=== PATIENT | female | born 1980 | race Caucasian/White ===

== ENCOUNTER 2018-06-11 09:27 | Emergency (ER) | payer OTHER ==
--- NOTE | 2018-06-11 10:18 | UC ---
Abdominal Pain Female HPI - HPI Summary HPI Summary: 38 yo female presents with intermittent nausea over the last 3 months. She tells me that she was in [place] in March 2018 with a friend and while there she was eating at a lot of different places and new foods. Her and her friend have both had intermittent abdominal pain and nausea since that time. Her nausea will happen about once a week or every other week and last for 2 or 3 days before resolving. During this time she has a lot of belching and her stomach feels uneasy. She also admits to some loose stools. Her mother had h pylori once and told pt that her symptoms sound the same. She also mentions that she is very busy with work and under a lot of stress. Does not have a PCP. She denies fever, chills, SOB, chest pain, vomiting, dysuria. - History of Current Complaint Chief Complaint: UCAbdominalPain Stated Complaint: NAUSEA Time Seen by Provider: 06/11/18 10:17 Hx Obtained From: Patient Hx Last Menstrual Period: 06/01/18 Onset/Duration: Gradual Onset Severity Initially: Mild Severity Currently: Mild Pain Intensity: 4 Pain Scale Used: 0-10 Numeric Allergies/Adverse Reactions: Allergies Allergy/AdvReac Type Severity Reaction Status Date / Time steroids Allergy manic Uncoded 06/11/18 09:44 Home Medications: Home Medications Ziprasidone CAP* [Geodon CAP*] 1 tab PO DAILY 06/11/18 [History Confirmed ] traZODone TAB* [Desyrel TAB*] 100 mg PO DAILY 06/11/18 [History Confirmed ] PMH/Surg Hx/FS Hx/Imm Hx Neurological History: Migraine Psychological History: Anxiety, Depression - Surgical History Surgical History: Yes Surgery Procedure, Year, and Place: ricki,hernia - Family History Known Family History: Positive: None - Social History Occupation: Employed Full-time Lives: With Family Alcohol Use: None Substance Use Type: None Smoking Status (MU): Never Smoked Tobacco Review of Systems All Other Systems Reviewed And Are Negative: Yes Constitutional: Positive: Negative Skin: Positive: Negative Respiratory: Positive: Negative Cardiovascular: Positive: Negative Gastrointestinal: Positive: Abdominal Pain, Nausea Genitourinary: Positive: Negative Neurovascular: Positive: Negative Musculoskeletal: Positive: Negative Neurological: Positive: Negative Psychological: Positive: Negative Physical Exam - Summary Physical Exam Summary: GENERAL: NAD. WDWN. No pain distress. SKIN: No rashes, sores, lesions, or open wounds. NECK: Supple. Nontender. No lymphadenopathy. CHEST: CTAB. No r/r/w. No accessory muscle use. Breathing comfortably and in no distress. CV: RRR. Without m/r/g. Pulses intact. Cap refill <2seconds ABDOMEN: Mild RLQ pain. Soft. No distention or guarding. No organomegaly. No CVA tenderness. Bowel sounds present NEURO: Alert. PSYCH: Age appropriate behavior. Triage Information Reviewed: Yes Vital Signs: Initial Vital Signs Temp 98.4 F 06/11/18 09:40 Pulse 69 06/11/18 09:40 Resp 16 06/11/18 09:40 BP 103/70 06/11/18 09:40 Pulse Ox 100 06/11/18 09:40 Laboratory Tests 06/11/18 10:39 POC Urine Color Ayana POC Urine Clarity Cloudy POC Urine pH 6.0 POC Ur Specif [place] >= 1.030 POC Urine Protein Trace A POC Ur Glucose (UA) Negative POC Urine Ketones Negative POC Urine Blood Trace-lysed A POC Urine Nitrite Negative POC Urine Bilirubin Negative POC Urine Urobilinogen 0.2 POC U Leukocyte Esteras Trace A Vital Signs Reviewed: Yes Abd Pain Female Course/Dx - Course Course Of Treatment: CT: IMPRESSION: RIGHT NEPHROLITHIASIS, INCLUDING A QUESTIONABLE CALCULUS OF THE DISTAL RIGHT URETER. THERE. IS NO APPRECIABLE HYDRONEPHROSIS. UA with trace leuks, but she is having no urinary symptoms - therefore will send for culture and treat as needed. I do suspect she may be suffering from h pylori. She is requesting treatment for this today as she says she does not have time nor want to wait to get into a GI doctor for testing. I will treat her for h pylori and strongly advised her to f/u with GI. If her symptoms worsen to go to the ED. - Differential Dx/Diagnosis Provider Diagnosis: Nausea, Abdominal pain Discharge - Sign-Out/Discharge Documenting (check all that apply): Patient Departure All imaging exams completed and their final reports reviewed: Yes - Discharge Plan Condition: Stable Disposition: HOME Prescriptions: Amoxicillin PO (*) [Amoxicillin 500 MG CAP*] 1 gm PO Q12H #56 cap Clarithromycin TAB* [Biaxin 500 MG TAB*] 500 mg PO BID #28 tab Pantoprazole TAB (NF) [Protonix TAB (NF)] 20 mg PO BID #28 tab Patient Education Materials: Helicobacter Pylori (ED) Referrals: No Primary Care Phys,NOPCP [Primary Care Provider] - Moose Amin MD [Medical Doctor] - As Soon As Possible Additional Instructions: If you develop a fever, shortness of breath, chest pain, new or worsening symptoms - please call your PCP or go to the ED. You are being treated for H. Pylori. Please schedule an appointment with a GI doctor for follow up as soon as possible. - Billing Disposition and Condition Condition: STABLE Disposition: Home
[2018-06-11 12:32] VITALS: BP 114/75
== END 2018-06-11 12:20 | disposition home or self-care (01) ==
LOC: UCEAST 09:27
DX: R11.0 Nausea (principal); R10.31 Right lower quadrant pain; N20.0 Calculus of kidney; F32.9 Major depressive disorder, single episode, unspecified; Z88.8 Allergy status to other drugs, medicaments and biological substances
CPT/HCPCS: 74176; 81003; 84702; 87086; 99202; G0463

== ENCOUNTER 2018-08-13 11:08 | Emergency (ER) | payer OTHER ==
[2018-08-13 11:52] VITALS: BP 110/65
--- NOTE | 2018-08-13 12:12 | UC ---
UC General HPI - HPI Summary HPI Summary: States two days of urinary frequency. No dysuria. No hematuria. Also noticed right sided back pain. No fever. No N/V. Has an IUD. Has a new partner that both were tested for STIs she saw his results that are negative. SHe has been having more sex lately. Hx of kidney stones in the past. Meds: reviewed. NO vaginal discharge or itching - History of Current Complaint Chief Complaint: UCGU Stated Complaint: URINARY COMPLAINT Time Seen by Provider: 08/13/18 11:49 Hx Last Menstrual Period: iud Pain Intensity: 2 - Allergy/Home Medications Allergies/Adverse Reactions: Allergies Allergy/AdvReac Type Severity Reaction Status Date / Time steroids Allergy manic Uncoded 08/13/18 11:52 Home Medications: Home Medications clonazePAM TAB(*) [KlonoPIN TAB(*)] 1 mg PO BEDTIME 08/13/18 [History Confirmed 08/13/18] PMH/Surg Hx/FS Hx/Imm Hx Previously Healthy: Yes - Surgical History Surgical History: Yes Surgery Procedure, Year, and Place: ricki,hernia - Family History Known Family History: Positive: None - Social History Alcohol Use: None Substance Use Type: None Smoking Status (MU): Never Smoked Tobacco Review of Systems All Other Systems Reviewed And Are Negative: Yes Genitourinary: Positive: Frequency, Urgency Physical Exam Triage Information Reviewed: Yes Appearance: Well-Appearing Vital Signs: Initial Vital Signs Temp 98.1 F 08/13/18 11:48 Pulse 80 08/13/18 11:48 Resp 18 08/13/18 11:48 BP 110/65 08/13/18 11:48 Pulse Ox 97 08/13/18 11:48 ENT: Positive: Normal ENT inspection Respiratory: Positive: Lungs clear, Normal breath sounds Cardiovascular: Positive: RRR, No Murmur Abdomen Description: Positive: Soft, CVA Tenderness (R), Other: Diagnostics - Radiology Renal US and bladder Radiology Interpretation Completed By: Radiologist Summary of Radiographic Findings: No hydronephrosis, no nephrolithiasis, PVR: 21 Course/Dx - Course Course Of Treatment: This is a 38 yr old with urinary frequency and right low back pain Assessment U/A: negative Renal US&Bladder: Negative Suspect its from having sex several times over past 1-2 days Plan REcommend pelvic rest If symptoms continue: Recommend trial of Oxybutynin Recommend evaluation by a urologist - DR. Garnica - Diagnoses Provider Diagnosis: Urinary frequency Discharge - Sign-Out/Discharge Documenting (check all that apply): Patient Departure All imaging exams completed and their final reports reviewed: Yes - Discharge Plan Condition: Good Disposition: HOME Prescriptions: Oxybutynin XL TAB* [Ditropan XL TAB*] 5 mg PO DAILY #30 tab.xl Referrals: No Primary Care Phys,NOPCP [Primary Care Provider] - Marquise Garnica MD [Medical Doctor] - Additional Instructions: REcommend pelvic rest If symptoms continue: Recommend trial of Oxybutynin Recommend evaluation by a urologist - DR. Garnica - Billing Disposition and Condition Condition: GOOD Disposition: Home
== END 2018-08-13 14:01 | disposition home or self-care (01) ==
LOC: UCEAST 11:08
DX: R35.0 Frequency of micturition (principal); M54.5 Low back pain; Z88.8 Allergy status to other drugs, medicaments and biological substances
CPT/HCPCS: 76770; 81003; 99212; G0463

== ENCOUNTER 2018-09-01 18:34 | Emergency (ER) | payer OTHER ==
[2018-09-01 18:42] VITALS: BP 129/81
[2018-09-01] MEDS ORDERED: Ibuprofen TAB* 600 MG PO ONE (18:49)
[2018-09-01] MEDS ORDERED: Amoxicillin PO (*) 500 MG CAP PO ONE (19:12)
--- NOTE | 2018-09-01 19:24 | UC ---
Throat Pain/Nasal [place] HPI - HPI Summary HPI Summary: 2 DAYS OF SORE THROAT, PAIN WITH SWALLOWING AND SWOLLEN GLANDS. FEVER 102 TODAY. NO NAUSEA/VOMITING. REPORTS ABDOMINAL PAIN BUT STATES THIS IS CHRONIC. DENIES ANY URINARY SYMPTOMS. 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 STATES IT WAS RECOMMENDED SHE HAVE HER TONSILS REMOVED WHEN SHE WAS LIVING IN [place] BUT THAT BECAUSE OF INSURANCE ISSUES SHE WAS UNABLE TO HAVE THE PROCEDURE. - History of Current Complaint Chief Complaint: UCRespiratory Stated Complaint: SORE THROAT Time Seen by Provider: 09/01/18 18:46 Hx Obtained From: Patient Hx Last Menstrual Period: ~2 WEEKS AGO Onset/Duration: Gradual Onset, Lasting Days, Still Present Severity: Moderate Pain Intensity: 2 Pain Scale Used: 0-10 Numeric Cough: None Associated Signs & Symptoms: Positive: Fever - Allergies/Home Medications Allergies/Adverse Reactions: Allergies Allergy/AdvReac Type Severity Reaction Status Date / Time steroids Allergy manic Uncoded 09/01/18 18:42 Home Medications: Home Medications Ibuprofen TAB* [Advil TAB*] 600 mg PO ONCE PRN 09/01/18 [History Confirmed 09/01] PMH/Surg Hx/FS Hx/Imm Hx Other Psychological History: SCHIZOAFFECTIVE DISORDER - Surgical History Surgical History: Yes Surgery Procedure, Year, and Place: ricki,hernia - Family History Known Family History: Positive: None - Social History Alcohol Use: None Substance Use Type: None Smoking Status (MU): Never Smoked Tobacco Review of Systems All Other Systems Reviewed And Are Negative: Yes Constitutional: Positive: Fever, Fatigue ENT: Positive: Sore Throat Respiratory: Positive: Negative Cardiovascular: Positive: Negative Gastrointestinal: Positive: Abdominal Pain Genitourinary: Positive: Negative Physical Exam Triage Information Reviewed: Yes Appearance: Well-Appearing, No Pain Distress, Well-Nourished Vital Signs: Initial Vital Signs Temp 102.1 F 09/01/18 18:38 Pulse 132 09/01/18 18:38 Resp 16 09/01/18 18:38 BP 129/81 09/01/18 18:38 Pulse Ox 97 09/01/18 18:38 Laboratory Tests 09/01/18 18:51 Group A Strep Rapid Negative Vital Signs Reviewed: Yes Eyes: Positive: Conjunctiva Clear ENT: Positive: Hearing grossly normal, Pharyngeal erythema, TMs normal, Tonsillar swelling, Tonsillar exudate. Negative: Muffled voice Neck: Positive: Supple, Tenderness @ - SPFL CERVICAL LAD, Enlarged Nodes @ - SPFL CERVICAL LAD Respiratory Exam: Normal Cardiovascular: Positive: Tachycardia Abdomen Description: Positive: Soft, Other: - MILDLY TENDER DIFFUSELY. NO REBOUND OR RIGIDITY. 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 IS INSISTENT THAT SHE REQUIRES ANTIBIOTIC TREATMENT TODAY. WILL GO AHEAD AND COVER WITH AMOXICILLIN TWICE DAILY FOR 10 DAYS. THROAT CULTURE SENT. STRONGLY ENCOURAGED PATIENT TO FOLLOW UP WITH ENT FOR FURTHER EVALUATION OF HER RECURRENT TONSILLITIS. OTC MEDS NEEDED FOR DISCOMFORT AND FEVER. MAGIC MOUTHWASH ALSO PROVIDED FOR HER TO USE NEEDED. - Differential Dx/Diagnosis Provider Diagnosis: Acute tonsillitis Discharge - Sign-Out/Discharge Documenting (check all that apply): Patient Departure All imaging exams completed and their final reports reviewed: No Studies - Discharge Plan Condition: Stable Disposition: HOME Prescriptions: Amoxicillin PO (*) [Amoxicillin 500 MG CAP*] 500 mg PO Q12H #18 cap Magic Mouth Was-YIN/MAAL/LIDO* 5 - 10 ml SWISH SWAL QID PRN #150 ml PRN Reason: Sore Throat Patient Education Materials: Tonsillitis (ED) Referrals: [facility] [Outside] - If Needed Additional Instructions: RAPID STREP NEGATIVE. THROAT CULTURE SENT TO CONFIRM. WE WILL CALL YOU IF POSITIVE. GIVEN YOUR HISTORY OF RECURRENT STREP WILL GO AHEAD AND TREAT WITH ANTIBIOTICS. TAKE FOR THE FULL 10 DAYS. OTC CHLORASEPTIC OR CEPACOL LOZENGES AND/OR IBUPROFEN FOR SORE THROAT NEEDED MAGIC MOUTHWASH ALSO PROVIDED TO USE NEEDED. ONCE SYMPTOMS RESOLVED - NEW TOOTHBRUSH DO NOT SHARE FOOD, DRINK, UTENSILS CONSIDER EVALUATION BY ENT. [facility] IN [place] [address] [facility] [phone] CALL THE NUMBER BELOW FOR ASSISTANCE IN ESTABLISHING WITH A PCP An additional resource available to assist in finding the appropriate physician for your health care needs is the [facility] (Terrie Stevens). You may contact them by calling [phone]. - Billing Disposition and Condition Condition: STABLE Disposition: Home
--- NOTE | 2018-09-03 15:50 | UC ---
- Progress Note Progress Note: please notify pt she has Grp C strep throat continue amox Course/Dx - Diagnoses Provider Diagnoses: Acute tonsillitis Discharge - Sign-Out/Discharge Documenting (check all that apply): Patient Departure, Post-Discharge Follow Up All imaging exams completed and their final reports reviewed: No Studies - Discharge Plan Condition: Stable Disposition: HOME Prescriptions: Amoxicillin PO (*) [Amoxicillin 500 MG CAP*] 500 mg PO Q12H #18 cap Magic Mouth Was-YIN/MAAL/LIDO* 5 - 10 ml SWISH SWAL QID PRN #150 ml PRN Reason: Sore Throat Patient Education Materials: Tonsillitis (ED) Referrals: [facility] [Outside] - If Needed Additional Instructions: RAPID STREP NEGATIVE. THROAT CULTURE SENT TO CONFIRM. WE WILL CALL YOU IF POSITIVE. GIVEN YOUR HISTORY OF RECURRENT STREP WILL GO AHEAD AND TREAT WITH ANTIBIOTICS. TAKE FOR THE FULL 10 DAYS. OTC CHLORASEPTIC OR CEPACOL LOZENGES AND/OR IBUPROFEN FOR SORE THROAT NEEDED MAGIC MOUTHWASH ALSO PROVIDED TO USE NEEDED. ONCE SYMPTOMS RESOLVED - NEW TOOTHBRUSH DO NOT SHARE FOOD, DRINK, UTENSILS CONSIDER EVALUATION BY ENT. [facility] IN [place] [address] [facility] [phone] CALL THE NUMBER BELOW FOR ASSISTANCE IN ESTABLISHING WITH A PCP An additional resource available to assist in finding the appropriate physician for your health care needs is the [facility] (Terrie Stevens). You may contact them by calling [phone]. - Billing Disposition and Condition Condition: STABLE Disposition: Home
--- NOTE | 2018-09-04 16:00 | UC ---
- Progress Note Progress Note: as per yesterdays note no change in treatment...continue amox please notify pt of results (Group C strep) Course/Dx - Diagnoses Provider Diagnoses: Acute tonsillitis Discharge - Sign-Out/Discharge Documenting (check all that apply): Post-Discharge Follow Up All imaging exams completed and their final reports reviewed: No Studies - Discharge Plan Condition: Stable Disposition: HOME Prescriptions: Amoxicillin PO (*) [Amoxicillin 500 MG CAP*] 500 mg PO Q12H #18 cap Magic Mouth Was-YIN/MAAL/LIDO* 5 - 10 ml SWISH SWAL QID PRN #150 ml PRN Reason: Sore Throat Patient Education Materials: Tonsillitis (ED) Referrals: [facility] [Outside] - If Needed Additional Instructions: RAPID STREP NEGATIVE. THROAT CULTURE SENT TO CONFIRM. WE WILL CALL YOU IF POSITIVE. GIVEN YOUR HISTORY OF RECURRENT STREP WILL GO AHEAD AND TREAT WITH ANTIBIOTICS. TAKE FOR THE FULL 10 DAYS. OTC CHLORASEPTIC OR CEPACOL LOZENGES AND/OR IBUPROFEN FOR SORE THROAT NEEDED MAGIC MOUTHWASH ALSO PROVIDED TO USE NEEDED. ONCE SYMPTOMS RESOLVED - NEW TOOTHBRUSH DO NOT SHARE FOOD, DRINK, UTENSILS CONSIDER EVALUATION BY ENT. [facility] IN [place] [address] [phone] CALL THE NUMBER BELOW FOR ASSISTANCE IN ESTABLISHING WITH A PCP An additional resource available to assist in finding the appropriate physician for your health care needs is the [facility] (Terrie Stevens). You may contact them by calling [phone]. - Billing Disposition and Condition Condition: STABLE Disposition: Home
== END 2018-09-01 19:20 | disposition home or self-care (01) ==
LOC: UCEAST 18:34
DX: J03.90 Acute tonsillitis, unspecified (principal); Z22.338 Carrier of other streptococcus
CPT/HCPCS: 87070; 87077; 87651; 99212; A9270-GY; G0463

== ENCOUNTER 2018-12-11 16:20 | Emergency (ER) | payer OTHER ==
[2018-12-11 18:16] VITALS: BP 124/78
--- NOTE | 2018-12-11 18:16 | UC ---
Throat Pain/Nasal [place] HPI - HPI Summary HPI Summary: 38 y/o female presents to the urgent care c/o sore throat and fever for the past 2 days. She is very concerned about strep since she has Hx of strep in the past. She requests throat culture and antibiotic treatment since last time the rapid strep was negative and the throat culture returned positive for strep positive. Pt reports she had fever last night. Pain w/ swallowing is 6/10 associated w/ body aches. Pt denies cough, wheezing, chest pain, abdominal pain , N/V/D. Pt reports she has Hx of anxiety and sometimes feels her HR is elevated, specially when she hasn't slept well like last night. Pt has taken Ibuprofen PO to alleviate symptoms. - History of Current Complaint Chief Complaint: UCGeneralIllness Stated Complaint: POSS STREP Time Seen by Provider: 12/11/18 18:10 Hx Obtained From: Patient Hx Last Menstrual Period: ~2 WEEKS AGO ?: No Onset/Duration: Gradual Onset, Lasting Days Severity: Moderate Pain Intensity: 8 - sore throat Pain Scale Used: 0-10 Numeric Cough: None Associated Signs & Symptoms: Positive: Dysphagia, Fever. Negative: Wheezing, Hoarseness, Nasal Discharge, Rash Related History: Other (Noted In Comments) - Hx of strep - Epiglottits Risk Factors Epiglottis Risk Factors: Negative - Allergies/Home Medications Allergies/Adverse Reactions: Allergies Allergy/AdvReac Type Severity Reaction Status Date / Time steroids Allergy manic Uncoded 12/11/18 16:48 Home Medications: Home Medications Rizatriptan Benzoate [Rizatriptan] 10 mg PO DAILY PRN 12/11/18 [History Confirmed 12/11/18] PMH/Surg Hx/FS Hx/Imm Hx Previously Healthy: Yes Psychological History: Anxiety Other Psychological History: Insomnia - Surgical History Surgical History: Yes Surgery Procedure, Year, and Place: ricki,hernia - Family History Known Family History: Positive: None, Cardiac Disease - Social History Occupation: Employed Full-time Lives: With Family Alcohol Use: None Substance Use Type: None Smoking Status (MU): Never Smoked Tobacco Review of Systems All Other Systems Reviewed And Are Negative: Yes Constitutional: Positive: Fever, Chills, Other - body aches Skin: Positive: Negative Eyes: Positive: Negative ENT: Positive: Sore Throat Respiratory: Positive: Negative Cardiovascular: Positive: Negative Gastrointestinal: Positive: Negative Genitourinary: Positive: Negative Motor: Positive: Negative Neurovascular: Positive: Negative Musculoskeletal: Positive: Negative, Calf Tenderness Psychological: Positive: Negative Is Patient Immunocompromised?: No Physical Exam - Summary Physical Exam Summary: VITAL SIGNS: Reviewed. GENERAL: Patient is a well developed and nourished female who is sitting comfortable in the examining table. Patient is not in any acute respiratory distress. HEAD AND FACE: No signs of trauma. No ecchymosis, hematomas or skull depressions. No sinus tenderness. EYES: PERRLA, EOMI x 2, No injected conjunctiva, no nystagmus. No photophobia. EARS: Hearing grossly intact. Ear canals and tympanic membranes are within normal limits. MOUTH: Positive pharynx with erythema, exudates, palatal petechiae. B/L tonsillar enlargement with exudate. Uvula in midline. NECK: Supple, trachea is midline, Positive anterior cervical lymphadenopathy, no JVD, no carotid bruit, no c-spine tenderness, neck with full ROM. No meningeal signs, no Kernig's or brudzinskis signs. CHEST: Symmetric, no tenderness at palpation LUNGS: Clear to auscultation bilaterally. No wheezing or crackles. CVS: Regular rate and rhythm, S1 and S2 present, no murmurs or gallops appreciated. ABDOMEN: Soft, non-tender. No signs of distention. No rebound no guarding, and no masses palpated. Bowel sounds are normal. EXTREMITIES: FROM in all major joints, no edema, no cyanosis or clubbing. NEURO: Alert and oriented x 3. No acute neurological deficits. Speech is normal and follows commands. SKIN: Dry and warm Triage Information Reviewed: Yes Vital Signs: Initial Vital Signs Temp 99.1 F 12/11/18 16:42 Pulse 135 12/11/18 16:42 Resp 18 12/11/18 16:42 BP 138/89 12/11/18 16:42 Pulse Ox 97 12/11/18 16:42 Throat Pain/Nasal Course/Dx - Course Course Of Treatment: 38 y/o female presents to the urgent care c/o sore throat and fever for the past 2 days. She is very concerned about strep since she has Hx of strep in the past. She requests throat culture and antibiotic treatment since last time the rapid strep was negative and the throat culture returned positive for strep positive. Pt reports she had fever last night. Pain w/ swallowing is 6/10 associated w/ body aches. Pt denies cough, wheezing, chest pain, abdominal pain , N/V/D. Pt reports she has Hx of anxiety and sometimes feels her HR is elevated, specially when she hasn't slept well like last night. Pt has taken Ibuprofen PO to alleviate symptoms. Hx obtained. Pt is hemodynamically stable, Pt is tachycardic, HR:139bpm elevated, Tepm:99.1F. EKG performed to r/o any abnormality. HR:116bpm, Sinus tachychardia, No ST elevations or depressions as per DR Snow.Rapid strep ordered: result: negative. However, I reviewed Pt's Hx and last time her rapid strep was negative and then throat culture returned positive. Throat culture ordered and sent to lab and Pt will be treated for possible Strep pharyngitis w/ Amoxicillin PO, first dose given at the clinic by the nurse. Pt tolerated well medication. Pt also Rx Ibuprofen PO for pain and swelling. Pt will be notified of throat culture results. PT Advised on hand washing to avoid spreading. Also advised to rest, eat well and avoid strenuous exercise. If symptoms do not improve or worsen advised to return to the urgent care or f/u with her PCP for further evaluation and treatment. PT understood and agreed w/ plan of care. - Differential Dx/Diagnosis Differential Diagnosis/HQI/PQRI: Laryngitis, Mononucleosis, Otitis Media, Pharyngitis, Tonsillitis, URI Provider Diagnosis: Acute pharyngitis, Fever Discharge ED - Sign-Out/Discharge Documenting (check all that apply): Patient Departure - d/C home All imaging exams completed and their final reports reviewed: No Studies - Discharge Plan Condition: Stable Disposition: HOME Prescriptions: Amoxicillin PO (*) [Amoxicillin 500 MG CAP*] 500 mg PO Q12H #20 cap Ibuprofen TAB* [Motrin TAB* 600 MG] 600 mg PO Q6H PRN #30 tab PRN Reason: fever Patient Education Materials: Pharyngitis (ED) Referrals: [facility] [place] [facility]ERR[facility] [Outside] - 3 Days Additional Instructions: 1- Please take the full course of the antibiotic to avoid resistance.Take yogurts w/ probiotics or Culturelle to protect your GI system. First dose given today. 2- RApid strep: negative, but since Hx of rapid strep negative and positive culture for strep in the past. your will be treated prophylactically w/ antibiotics. 2-Please take ibuprofen PO q6-8hrs prn as instructed after meals to alleviate fever, pain and swelling. Increase fluid intake, eat well, rest and avoid strenuous exercise 3-If symptoms do not improve or worsen please return to the urgent care or f/u with your PCP in 3 days for further evaluation and treatment. - Billing Disposition and Condition Condition: STABLE Disposition: Home
[2018-12-11] MEDS ORDERED: Ibuprofen TAB* 400 MG PO ONE (18:57)
[2018-12-11] MEDS ORDERED: Amoxicillin PO (*) 500 MG CAP PO ONE (19:20)
== END 2018-12-11 19:34 | disposition home or self-care (01) ==
LOC: UCEAST 16:20
DX: J02.9 Acute pharyngitis, unspecified (principal); R50.9 Fever, unspecified
CPT/HCPCS: 87070; 87077; 87651; 93005; 99212; A9270-GY; G0463

== ENCOUNTER 2019-05-30 20:18 | Emergency (ER) | payer OTHER ==
[2019-05-30 20:25] VITALS: BP 135/98
[2019-05-30] MEDS ORDERED: diPHENhydraMINE PO* 50 MG PO ONE (22:00)
--- NOTE | 2019-05-30 22:15 | ED ---
Allergic Reaction/Systemic - HPI Summary HPI Summary: 39-year-old female presents to the emergency department today complaining of possible allergic reaction to Lamictal. Patient made aware with her prescribing psychiatrist and she has been placed on new medications. Patient denies airway involvement including drooling, breathing but does endorse mild cough the last few days. Patient states her rash has been present for approximately 2 days. Patient is otherwise well and denies fever, chest pain, abdominal pain, pain with urination, nausea, vomiting, diarrhea. Patient is in no acute distress. Surgical history and family history is noncontributory. - History of Current Complaint Chief Complaint: EDAllergicReaction Time Seen by Provider: 05/30/19 21:43 Hx Obtained From: Patient Hx Last Menstrual Period: ~2 WEEKS AGO Onset/Duration: Sudden Onset Timing: Constant Pain Intensity: 0 Pain Scale Used: 0-10 Numeric Character: Hives Associated Signs And Symptoms: Negative: Chest Pain, Cough Wheezing, Diaphoresis , Difficulty Breathing, Hoarseness, Lightheadedness, Nausea, Syncope, Throat Tightening, Vomiting - Allergies/Home Medications Allergies/Adverse Reactions: Allergies Allergy/AdvReac Type Severity Reaction Status Date / Time steroids Allergy manic Uncoded 12/11/18 16:48 Home Medications: Home Medications RX: Ziprasidone CAP* [Geodon CAP*] 1 tab PO DAILY 06/11/18 [History Confirmed ] RX: traZODone TAB* [Desyrel TAB*] 100 mg PO DAILY 06/11/18 [History Confirmed ] RX: clonazePAM TAB(*) [Klonopin TAB(*)] 1 mg PO BEDTIME 08/13/18 [History Confirmed 05/09/19] RX: Ibuprofen TAB* [Motrin TAB* 600 MG] 600 mg PO Q6H PRN #30 tab 12/11/18 [Rx Confirmed 05/09/19] RX: Rizatriptan Benzoate [Rizatriptan] 10 mg PO DAILY PRN 12/11/18 [History Confirmed 05/09/19] Cephalexin CAP* [Keflex CAP*] 500 mg PO TID #21 cap 05/09/19 [Rx] RX: Tamsulosin CAP* [Flomax CAP*] 0.4 mg PO BID #12 cap 05/09/19 [Rx] PMH/Surg Hx/FS Hx/Imm Hx Cardiovascular History: Denies: Hx Embolism Respiratory History: Denies: Hx Cystic Fibrosis GI History: Denies: Hx Crohn's Disease History: Reports: Hx Kidney Stones Sensory History: Reports: Hx Contacts or Glasses Opthamlomology History: Reports: Hx Contacts or Glasses - Cancer History Hx Chemotherapy: No Hx Radiation Therapy: No - Surgical History Surgery Procedure, Year, and Place: ricki,hernia Infectious Disease History: No Infectious Disease History: Reports: History Other Infectious Disease - carrier of strep Denies: Traveled Outside the [place] in Last 30 Days - Family History Known Family History: Positive: Cardiac Disease, Renal Disease - kidney stones - Social History Alcohol Use: None Hx Substance Use: No Substance Use Type: Reports: None Hx Tobacco Use: No Smoking Status (MU): Never Smoked Tobacco Review of Systems Constitutional: Negative Eyes: Negative ENT: Negative Cardiovascular: Negative Respiratory: Negative Gastrointestinal: Negative Genitourinary: Negative Musculoskeletal: Negative Positive: Rash Neurological/Mental Status: Negative Psychological: Normal All Other Systems Reviewed And Are Negative: Yes Physical Exam - Summary Physical Exam Summary: Patient is in no acute distress. No evidence of airway involvement. No stridor or wheezing. There is a diffuse mildly erythematous rash distributed along the patient's entire body. Triage Information Reviewed: Yes Vital Signs On Initial Exam: Initial Vitals Temp Pulse Resp BP Pulse Ox 98.0 F 104 18 135/98 98 05/30/19 20:20 05/30/19 20:20 05/30/19 20:20 05/30/19 20:20 05/30/19 20:20 Vital Signs Reviewed: Yes Appearance: Positive: Well-Appearing, No Pain Distress, Well-Nourished Skin: Positive: Warm, Skin Color Reflects Adequate Perfusion Eyes: Positive: EOMI, LESLIE ENT: Positive: Hearing grossly normal Respiratory/Lung Sounds: Positive: Clear to Auscultation, Breath Sounds Present Cardiovascular: Positive: RRR, S1, S2 Abdomen Description: Positive: Nontender, Soft Bowel Sounds: Positive: Present Musculoskeletal: Positive: Strength/ROM Intact Neurological: Positive: Sensory/Motor Intact, Alert, Oriented to Person Place, Time, Normal Gait, Facial Symmetry, Speech Normal Psychiatric: Positive: Normal, Affect/Mood Appropriate AVPU Assessment: Alert Procedures - Sedation Patient Received Moderate/Deep Sedation with Procedure: No Diagnostics - Vital Signs Vital Signs Temp Pulse Resp BP Pulse Ox 05/30/19 20:20 98.0 F 104 18 135/98 98 - Laboratory Lab Statement: Any lab studies that have been ordered have been reviewed, and results considered in the medical decision making process. Allergic Reaction Course/Dx - Course Course Of Treatment: Patient was evaluated in the emergency department today for possible allergic reaction. Vitals noted. Patient appeared to have a diffuse mildly erythematous rash distributed along her face, upper extremities. Rash is consistent with mild allergic reaction. No evidence of anaphylaxis or angioedema. Patient endorsed guevara induced by steroids and steroids were held. Patient was given Benadryl in the emergency department and told to discontinue taking her Lamictal and follow up with her prescribing doctor. Patient discharged with outpatient follow-up. - Diagnoses Differential Diagnosis/HQI/PQRI: Positive: Airway Obstruction, Anaphylaxis, Angioedema, Bronchospasm, Urticaria Provider Diagnoses: Allergic reaction Discharge ED - Sign-Out/Discharge Documenting (check all that apply): Patient Departure - Discharge Plan Condition: Stable Disposition: HOME Patient Education Materials: General Allergic Reaction (ED) Referrals: [facility] [Outside] - 3 Days No Primary Care Phys,NOPCP [Primary Care Provider] - Additional Instructions: Please take Benadryl 50 mg twice daily as needed for your rash. Please follow- up with your prescribing doctor for further evaluation and management. Please return to this emergency Department immediately if you develop any new or worsening symptoms. - Billing Disposition and Condition Condition: STABLE Disposition: Home
== END 2019-05-30 22:15 | disposition home or self-care (01) ==
LOC: ED 20:18
DX: L27.0 Generalized skin eruption due to drugs and medicaments taken internally (principal); T42.6X5A Adverse effect of other antiepileptic and sedative-hypnotic drugs, initial encounter; Y92.9 Unspecified place or not applicable; Z88.8 Allergy status to other drugs, medicaments and biological substances
CPT/HCPCS: 99282; A9270-GY